=== PATIENT | male | born 1960 | race Caucasian/White ===

== ENCOUNTER 2018-05-06 00:13 | Inpatient (IN) | payer OTHER ==
--- NOTE | 2018-04-02 08:30 | EKG ---
FACILITY: PATIENT NAME: MARK JORDAN : [id number] MR: [id number] V: [id number] EXAM DATE: ORDERING PHYSICIAN: DERIC GONZALEZ TECHNOLOGIST: JULIANA Daugherty Reason : PREOP BACK Blood Pressure : / mmHG Vent. Rate : 049 BPM Atrial Rate : 049 BPM P-R Int : 222 ms QRS Dur : 104 ms QT Int : 438 ms P-R-T Axes : 049 -19 046 degrees QTc Int : 395 ms Marked sinus bradycardia with sinus arrhythmia with 1st degree AV block Abnormal ECG When compared with ECG of 03-MAR-2014 14:59, No significant change was found Confirmed by VAN AGUERO ([id number]) on 04/02/2018 12:07:32 PM Referred By: CARLOS Confirmed By:VAN AGUERO
[2018-04-02 08:47] LABS: PLATELET COUNT, AUTOMATED 215 K/uL (150-450)
[2018-05-06] VITALS (13 sets, daily range): BP systolic 112–135; BP diastolic 66–89
[~2018-05-06] VITALS: Ht 182.9 cm; Wt 80.7 kg
[~2018-05-06 00:13] MED LIST: ALB0.5 INH; CETI10CA8 PO; IBU800 PO; LISI-362 PO; MONT10TA PO
[2018-05-06] MEDS: NORMOSOL R SOLN(*) 1000 ML BAG 1,000 ML IV PRN ×2 (05:30→11:00)
[2018-05-06] MEDS ORDERED: MIDAZOLAM 2 MG/2 ML VIAL IVP PRN (06:00)
[2018-05-06] MEDS ORDERED: ceFAZolin(*) 2GM/D5W 50ML 50 ML IVPB ONE (06:00)
[2018-05-06] MEDS ORDERED: LIDOCAINE/SOD BICARB 8.4% SYR ID ONE (06:00)
[2018-05-06] MEDS ORDERED: FAMOTIDINE 20 MG TAB PO ONE (06:00)
[2018-05-06] MEDS ORDERED: ACETAMINOPHEN 500 MG TAB PO ONE (06:00)
[2018-05-06] MEDS ORDERED: PREGABALIN 150 MG CAPSULE PO ONE (06:30)
[2018-05-06] MEDS ORDERED: ONDANSETRON 4 MG/2 ML VIAL ONE (06:33)
[2018-05-06] MEDS ORDERED: SUGAMMADEX SOD 200 MG/2 ML SDV ONE (06:33)
[2018-05-06] MEDS ORDERED: LIDOCAINE MPF 1% 5 ML VIAL ONE (06:33)
[2018-05-06] MEDS ORDERED: PROPOFOL EMUL(*) 10MG/ML 20 ML 20 ML ONE ×3 (06:33→08:54)
[2018-05-06] MEDS ORDERED: ROCURONIUM BROM 10 MG/ML 10 ML ONE (06:33)
[2018-05-06] MEDS ORDERED: DEXAMETHASONE SOD 4 MG/ML VIAL ONE (06:33)
[2018-05-06] MEDS ORDERED: fentaNYL CITR 250 MCG/5 ML AMP ONE (06:33)
[2018-05-06] MEDS ORDERED: KETAMINE HCL 200 MG/20 ML MDV ONE (06:37)
[2018-05-06] MEDS ORDERED: HYDROmorphone HCL 2 MG/ML SDV ONE (06:40)
[2018-05-06] MEDS ORDERED: PROPOFOL(*)1000 MG/100 ML VIAL 100 ML ONE (06:41)
[2018-05-06] MEDS ORDERED: LABETALOL HCL 100 MG/20ML VIAL ONE (07:24)
[2018-05-06] MEDS ORDERED: NS 0.9% 20 ML SDV 20 ML ONE (07:48)
[2018-05-06] MEDS ORDERED: fentaNYL CITR 100 MCG/2 ML AMP ONE ×2 (10:19→10:53)
[2018-05-06] MEDS ORDERED: MEPERIDINE 50 MG/ML SYR ONE (10:28)
--- NOTE | 2018-05-06 11:31 | OPERATIVE REPORT 1 ---
EVENT DATE: May 06, 2018 SURGEON: Donnell Franco MD ANESTHESIOLOGIST: Philip Williamson MD ANESTHESIA: General endotracheal anesthesia. PEDIATRIC ONCOLOGIST: WOODROW Hernández PREOPERATIVE DIAGNOSIS Right L5 radiculopathy with L4-L5 spondylolisthesis and stenosis. POSTOPERATIVE DIAGNOSIS Right L5 radiculopathy with L4-L5 spondylolisthesis and stenosis. PROCEDURE PERFORMED L4-L5 minimally invasive transforaminal lumbar interbody fusion. INTRAVENOUS FLUIDS 1700 mL ESTIMATED BLOOD LOSS 25 mL IMPLANTS USED 1. A 9 mm tall, lordotic, 11 mm deep, 30 mm wide, curvilinear interbody titanium cage from [employer]. 2. Pedicle screws 6.5 x 45 mm from [employer] times four. 3. Connecting rods 40 mm from [employer] times two. 4. Locking caps from [employer] times four. SPECIMENS None. DRAINS None. COMPLICATIONS None. DISPOSITION Post-anesthesia care unit. INDICATIONS FOR SURGERY Mr. Ch is a 57-year-old male with a long history of radiating right lower extremity pain, numbness, and tingling in an L4 distribution. He had weakness in the right leg as well secondary to compression seen on the MRI, primarily in the foramen, but also in the lateral recess there at L4-L5. He had failed physical therapy, medications, and activity modifications, and injections gave him only temporary, but good relief. His physical examination was significant for a positive straight leg raising test on the right and slightly decreased strength in quadriceps and tibialis anterior. His MRI again showed multi-level degenerative changes with the most severe level being L4-L5 where there was also an anterolisthesis, severe disk height loss, and severe right-sided foraminal narrowing. Secondary to ongoing symptoms and failure to improve with nonsurgical care, Mr. Ch was offered and elected to undergo L4-L5 transforaminal lumbar interbody fusion. Prior to surgery, I explained in detail to the patient the possible risks of surgery. These included the risks of bleeding, infection, damage to nerve roots , spinal fluid leak, meningitis, persistent and/or worsening pain, , blindness, sexual dysfunction, autonomic nervous system dysfunction, and other unforeseen medical and surgical complications. An understanding that spinal surgery is more predictive at improving extremity discomfort than axial spine pain was stressed. DESCRIPTION OF PROCEDURE On the date of surgery, the patient was met in the preoperative hold area, and all questions were answered. The operative site was identified and marked by myself. The patient was brought in good condition to the operating room, and after succumbing to anesthesia, was placed in the prone position on a Hank table. All bony protuberances and soft tissues were well padded in the standard fashion. Care was taken to maintain appropriate perfusion pressures during anesthesia. Preoperative antibiotics were administered according to the appropriate timing schedule. At the conclusion of the procedure, sponge and needle counts were correct times two. A final timeout was undertaken by members of the operating team to confirm correct patient, correct levels, and correct surgery. Fluoroscopy was brought into the field, and anatomic landmarks for placement of percutaneous pedicle screws were marked. The patient was then prepped and draped in the standard sterile orthopedic fashion. Valentino type incisions were made bilaterally at the L4-L5 level, and sharp dissection was carried out down to the fascia. The fascia was incised, and then finger dissection was carried out in the interval between the longissimus and multifidis muscles, coming down onto the transverse processes of L4 and L5 and identifying the L3-L4 and the L4-L5 facet joints. Fluoroscopy was draped out and then brought into the field, and standard technique was used to cannulate bilateral pedicles at L4 and L5. Specifically on the right side, the Jamshidi needle was docked at the 3 o'clock position on the pedicle, while on the left side it was docked at the 9 o'clock position. The Jamshidi was then gently tapped through the pedicle against resistance. Guidewires were then placed, and lateral views were obtained to, again, confirm that the guidewires were within the pedicles themselves. Under lateral projection, the pedicles were all tapped, and the taps were tested with neurophysiologic monitoring, which was all appropriate. Pedicle screws 6.5 mm x 45 mm were chosen, and on the left side, we placed those with minimally invasive towers per standard protocol. On the right, we measured the appropriate length for retractor blades for the minimally invasive retractor, and we placed the screws there with 70 mm retractor blades. The retractor itself was then brought up and attached to the blades, which were distracted, giving us good distraction at the disk space. The mediolateral retractor was then inserted, and the entire L4-L5 facet joint was cleared of soft tissues using electrocautery, and we also cleared off the L4 lamina. An osteotome was then used to osteotomize the lamina and inferior articular process of L4, taking care not to osteotomize the pedicle above. A large chunk of bone was removed, and then the osteotome and Kerrison rongeurs were used to take down the superior articular process of L5, exposing the transforaminal space. I was able to identify the exiting L4 nerve and avoid it while performing the discectomy. Interestingly in this case, once we had achieved hemostasis in the transforaminal space, the disk space itself was essentially wide open with no remaining annulus. I was only able to pull minimal amounts of disk material out of the disk space, but we did go ahead and use first an 8 and then a 9 shaver to ensure that we removed any cartilaginous remnants from the endplates of L4 and L5. I then utilized double-angled Wallie-Heinig curettes to further prepare the endplates of L4 and L5, and we then placed a 9 mm trial implant and confirmed that it was the appropriate size with AP and lateral fluoroscopy. The wound was then irrigated with copious sterile saline solution, and we packed morselized local bone graft mixed with some demineralized bone matrix anterior to where the graft would sit. The graft itself was then packed with a combination of the morselized local bone mixed with the demineralized bone matrix. It was inserted under fluoroscopic guidance and then rotated into its appropriate position. AP and lateral radiographs confirmed excellent positioning of the interbody device. We then used the screwdriver to remove the retractor blades from the screw shanks on the right. Towers with tulips were then placed on those screw shanks , and all screws were advanced until they met resistance. A 40 mm connecting kenrick was chosen for both sides, and this was placed with standard minimally invasive techniques, confirming appropriate placement on AP and lateral projections with fluoroscopy. Locking caps were placed, and then compression was placed across the construct bilaterally as the locking caps were tightened down. Final tightening was performed with the torque limiter and antitorque device, and then we removed the towers with the acorn device. Final AP and lateral images were obtained that showed excellent placement of the pedicle screws as well as the interbody device. The wounds were then irrigated with sterile saline solution and closed in layers using interrupted sutures for the fascia, interrupted sutures for the subcutaneous tissue, and then a running subcuticular skin stitch. Sponge and needle counts were correct times two. POSTOPERATIVE CARE PLAN Mr. Ch will remain in hospital until he meets discharge criteria. He will be following up with me in clinic in two weeks' time for wound check and examination. JOSÉ
--- NOTE | 2018-05-06 11:35 | RADIOLOGY IMAGING REPORT ---
FACILITY: [facility] PATIENT NAME: Ren Ch : 1960 MR: [id number] V: [id number] EXAM DATE: ORDERING PHYSICIAN: DERIC GONZALEZ TECHNOLOGIST: Location: [facility] Patient: Ren Ch : 1960 Visit/Account:[id number] Date of Sevice: 05/06/2018 Exam type: C-ARM FLUORO 1 HR History: L-4-5 DISC HERNIATION AND FUSION Comparison: Lumbar spine series November 14, 2013. Findings: Five intraoperative fluoroscopic spot views of the lower lumbar spine were submitted demonstrating po sterior lumbar interbody fusion at L4 and L5 with intervertebral support cage. The total fluoroscopy time was 234.3 seconds. The total cumulative continuous possibly dose was 2.30 mGray per meter squa red IMPRESSION: 1. As above Report Dictated By: Ally Ga MD at 05/06/2018 11:31 AM Report E-Signed By: Ally Ga MD at 05/06/2018 11:32 AM WSN:[email or web address]
[2018-05-06] MEDS ORDERED: diphenhydrAMINE 25 MG CAP PO PRN (11:45)
[2018-05-06] MEDS ORDERED: BISACODYL 10 MG SUPP PR PRN (11:45)
[2018-05-06] MEDS ORDERED: oxyCODONE HCL 5 MG CAP PO PRN (11:45)
[2018-05-06] MEDS ORDERED: ACETAMINOPHEN 500 MG TAB PO PRN (11:45)
[2018-05-06] MEDS ORDERED: LR(*) 1000 ML BAG 1,000 ML IV PRN (11:45)
[2018-05-06] MEDS ORDERED: BENZOCAINE/MENTHOL 1 EACH LOZG PO PRN (11:45)
[2018-05-06] MEDS ORDERED: HYDROmorphone HCL 2 MG/ML SDV IVP PRN (11:45)
[2018-05-06] MEDS ORDERED: ONDANSETRON 4 MG/2 ML VIAL IVP PRN (11:45)
[2018-05-06] MEDS ORDERED: MAGNESIUM HYDROXIDE* 30ML UDCP PO PRN (11:45)
[2018-05-06] MEDS ORDERED: FLUSH 10 ML SYR IVP PRN (11:45)
[2018-05-06] MEDS ORDERED: ACETAMINOPHEN(*)1000 MG/100 ML 100 ML IVPB PRN (11:45)
[2018-05-06] MEDS ORDERED: ALBUTEROL 2.5 MG/3 ML NEB NEB PRN (12:10)
[2018-05-06] MEDS: APAP/HYDROCODONE 325/5 TAB PO PRN ×2 (12:13→17:04)
[2018-05-06] MEDS: DIAZEPAM 5 MG TAB PO PRN ×2 (12:14→19:10)
--- NOTE | 2018-05-06 12:16 | Hospitalist Consultation ---
History of Present Illness Requesting Physician Dr. Franco Reason for Consult Medical Management Chief Complaint s/p laminectomy History of Present Illness He was admitted s/p laminectomy. It is reported the surgery went well and without complication. History Problems: (1) Hypertension Status: Chronic Home Meds Reported Medications Cetirizine Hcl (ZYRTEC) 10 Mg Capsule, 10 MG PO PRN, CAPSULE 04/29/18 Montelukast Sodium (SINGULAIR) 10 Mg Tablet, 1 TAB PO PRN, TAB 04/29/18 Lisinopril (LISINOPRIL) 10 Mg Tablet, 10 MG PO BID, TAB 04/29/18 Albuterol Sulfate (Albuterol Inh Conc) 2.5 Mg/0.5 Ml Nebu, 2.5 MG INH ONCE Y, 0 Refills DILUTE BEFORE USING 09/06/10 Ibuprofen (Motrin) 800 Mg Tab, 800 MG PO BID, 0 Refills 09/06/10 Allergies: Coded Allergies: Sulfa (Sulfonamide Antibiotics) (Verified Allergy, Severe, HIVES, RASH, 04/29/18) Patient History: Heart murmur BROTHER OR SISTER Hx Smoking: No Smoking Status: Never Smoker Caffeine Intake: Coffee Caffeine/Cups Per Day: 2-3 CPD Hx Alcohol Use: Yes Alcohol Used: Beer Hx Substance Use Disorder: No Social Drug Use: Never Review of Systems All Systems Reviewed/Normal: Yes, Except as Noted Exam Vital Signs Vital Signs Date Time Temp Pulse Resp B/P (MAP) Pulse Ox O2 Delivery O2 Flow Rate FiO2 05/06/18 11:00 70 16 100 05/06/18 05:34 97.9 128/89 (102) Room Air General Appearance: Alert, Awake, No Acute Distress, Afebrile Neuro: No Gross deficits Cardiovascular: Regular Rate and Rhythm Respiratory: No Respiratory Distress, Clear to Auscultation GI: Abd Soft and Non-Tender Psych: Alert & Oriented X3, Appropriate Mood & Affect Assessment and Plan Problems: (1) S/P laminectomy Status: Acute Assessment & Plan: Followed by Dr. Franco (2) Hypertension Status: Chronic Assessment & Plan: He is on chronic treatment with Lisinopril. He will be restarted on this with hold parameters. Venous Thromboembolism Antithrombotics Is Pt On Any Antithrombotics?: No Problem Qualifiers (1) Hypertension: Hypertension type: essential hypertension Qualified Codes: I10 - Essential ( primary) hypertension ALDRIDGE,KEKE M [facility] May 06, 2018 12:16
[2018-05-06] MEDS ORDERED: ceFAZolin(*) 2GM/D5W 50ML 50 ML IVPB SCH (15:00)
[2018-05-06] MEDS ORDERED: ceFAZolin(*) 1 GM VIAL 2 GM in NS(*) 0.9% 100 ML BAG 100 ML IV SCH (15:00)
[2018-05-06] MEDS ORDERED: GLUC-198 PO (15:17)
[2018-05-06] MEDS ORDERED: DIA5 PO (18:30)
[2018-05-06] MEDS ORDERED: DOCU240C84 PO (18:32)
[2018-05-06] MEDS ORDERED: LOR5/325 PO (18:33)
[2018-05-06] MEDS ORDERED: DOCUSATE SODIUM 100 MG CAP PO SCH (21:00)
[2018-05-06] MEDS ORDERED: MONTELUKAST SODIUM 10 MG TAB PO PRN (21:00)
[2018-05-06] MEDS ORDERED: LISINOPRIL 10 MG TAB PO SCH (21:00)
[2018-05-07] MEDS ORDERED: CETIRIZINE HCL 10 MG TAB PO PRN (09:00)
== END 2018-05-06 19:20 | disposition home or self-care (01) | DRG 460 ==
LOC: OR 00:13 → MED 11:40
PROVIDERS: ADMIT Orthopaedic Surgery; ATTEND Orthopaedic Surgery
PROC: 0ST20ZZ Resection of Lumbar Vertebral Disc, Open Approach (ICD-10-PCS; 2018-05-06)
PROC: 0SG00AJ Fusion of Lumbar Vertebral Joint with Interbody Fusion Device, Posterior Approach, Anterior Column, Open Approach (ICD-10-PCS; principal; 2018-05-06 07:00)
DX: M51.16 Intervertebral disc disorders with radiculopathy, lumbar region (principal); M48.061 Spinal stenosis, lumbar region without neurogenic claudication; M43.06 Spondylolysis, lumbar region; I10 Essential (primary) hypertension; J45.909 Unspecified asthma, uncomplicated; Z88.2 Allergy status to sulfonamides
CPT/HCPCS: 36415; 76000; 82040; 82247; 82310; 82374; 82435; 82565; 82947; 84075; 84132; 84155; 84295; 84450; 84460; 84520; 85025; 86850; 86900; 86901; 93005; 97161; J0690; J1100; J1170; J2001; J2175; J2250; J2405; J2704; J3010; J3490; J7050